=== PATIENT | female | born 2000 | race Two or more races ===

== ENCOUNTER 2018-09-03 16:10 | Emergency (ER) | payer OTHER ==
[2018-09-03] MEDS ORDERED: NS 1,000 ML IV ONE (16:51)
--- NOTE | 2018-09-03 16:56 | EDPHY ---
HPI/HX/ROS/PE/MDM Narrative: CHIEF COMPLAINT: Syncope HPI: The patient is a 17-year-old female with no significant past medical history. She has been in her usual state of health until this afternoon when she was sitting in class and developed abdominal pain and headache. She then felt faint and eventually passed out. She did not injure herself when she passed out. She continues to complain of mild headache and abdominal pain. She denies dysuria. She denies fever. She has no history of abdominal surgery. She has no history of heart disease that she knows of. She states that she did not eat anything for most of the day, and has recently started her menstrual period. REVIEW OF SYSTEMS: Aside from elements discussed in the HPI, a comprehensive 10-point review of systems was reviewed and is negative. PMH: None significant. Eye surgery as a child. SOCIAL HISTORY: Single. Student. PHYSICAL EXAM: General:Patient is alert, in no acute distress. ENT:Eyes are normal to inspection. ENT inspection normal. Neck: Normal inspection. Full range of motion. Respiratory:No respiratory distress. Breath sounds normal bilaterally. Cardiovascular: Regular rate and rhythm. Strong peripheral pulses. Normal cap refill. Abdomen:The abdomen is diffusely mildly tender to palpation. There are no peritoneal signs. There are normal bowel sounds. Back: Normal to inspection. No tenderness to palpation. Skin: Normal color. No rash. Warm and dry. Extremities: Normal appearance. Full range of motion. Neuro: Oriented x3. Normal motor function. Normal sensory function. ED Course: Patient tolerated PO. Challenge and road test without any difficulty. I was informed by the nurse that the patient refuses to give a urine sample because she just started her menstrual period. Her mother is here now and she would like to go home she has isolated T-wave inversions in V1 and V2 which I will refer her to Cardiology for. I see no signs of PE, acute coronary syndrome , life-threatening arrhythmia, sepsis. - Data Points Laboratory Results: Laboratory Results 09/03/18 16:16 09/03/18 16:16 09/03/18 09/03/18 09/03/18 16:16 16:16 16:16 WBC 9.47 10^3/uL 10^3/uL (3.80-9.50) RBC 5.05 10^6/uL 10^6/uL (4.18-5.33) Hgb 14.3 g/dL g/dL (12.6-16.3) Hct 41.7 % % (38.0-47.0) MCV 82.6 fL fL (81.5-99.8) MCH 28.3 pg pg (27.9-34.1) MCHC 34.3 g/dL g/dL (32.4-36.7) RDW 12.5 % % (11.5-15.2) Plt Count 286 10^3/uL 10^3/uL (150-400) MPV 9.8 fL fL (8.7-11.7) Neut % (Auto) 64.7 % % (39.3-74.2) Lymph % (Auto) 29.8 % % (15.0-45.0) [place] % (Auto) 4.8 % % (4.5-13.0) Eos % (Auto) 0.2 % L % (0.6-7.6) Baso % (Auto) 0.2 % L % (0.3-1.7) Nucleat RBC Rel Count 0.0 % % (0.0-0.2) Absolute Neuts (auto) 6.13 10^3/uL 10^3/uL (1.70-6.50) Absolute Lymphs (auto) 2.82 10^3/uL 10^3/uL (1.00-3.00) Absolute Monos (auto) 0.45 10^3/uL 10^3/uL (0.30-0.80) Absolute Eos (auto) 0.02 10^3/uL L 10^3/uL (0.03-0.40) Absolute Basos (auto) 0.02 10^3/uL 10^3/uL (0.02-0.10) Absolute Nucleated RBC 0.00 10^3/uL 10^3/uL (0-0.01) Immature Gran % 0.3 % % (0.0-1.1) Immature Gran # 0.03 10^3/uL 10^3/uL (0.00-0.10) Sodium 139 mEq/L mEq/L (135-145) Potassium 4.3 mEq/L mEq/L (3.3-5.0) Chloride 106 mEq/L mEq/L (97-110) Carbon Dioxide 22 mEq/l mEq/l (22-31) Anion Gap 11 mEq/L mEq/L (6-14) BUN 10 mg/dL mg/dL (7-23) Creatinine 0.6 mg/dL mg/dL (0.6-1.0) Estimated GFR > 60 Glucose 98 mg/dL mg/dL (70-100) Calcium 9.6 mg/dL mg/dL (8.5-10.4) Beta HCG, Qual NEGATIVE Medications Given: Discontinued Medications Sodium Chloride (Ns) 1,000 mls @ 0 mls/hr IV EDNOW ONE; Wide Open PRN Reason: Protocol Stop: 09/03/18 16:52 Last Admin: 09/03/18 16:59 Dose: 1,000 mls General Time Seen by Provider: 09/03/18 16:50 Initial Vital Signs: Initial Vital Signs Temperature (C) 36.9 C 09/03/18 16:15 Heart Rate 70 09/03/18 16:15 Respiratory Rate 16 09/03/18 16:15 Blood Pressure 130/66 H 09/03/18 16:15 O2 Sat (%) 97 09/03/18 16:15 O2 Delivery Mode Room Air Allergies/Adverse Reactions: No Known Allergies Allergy (Unverified 09/03/18 16:14) Home Medications: Medication Instructions Recorded NK [No Known Home Meds] 09/03/18 Departure - Departure Disposition: Home, Routine, Self-Care Clinical Impression: Syncope Condition: Good Instructions: Syncope (ED) Additional Instructions: Follow-up with your primary doctor within 72 hours. Return to the Emergency Department for passing out,fever, chest pain, shortness of breath, increasing pain or other worsening of condition. We recommend you follow-up with Cardiology within one week. Referrals: Patient,NotPresent [Unknown] - As per Instructions Yobani Willis MD [Medical Doctor] - As per Instructions
[2018-09-03 17:09] LABS: PLATELET COUNT 286 10^3/uL (150-400)
[2018-09-03 19:27] VITALS: BP 115/77
--- NOTE | 2018-09-03 21:27 | CPEKG ---
Test Reason : OPEN Blood Pressure : / mmHG Vent. Rate : 077 BPM Atrial Rate : 081 BPM P-R Int : 124 ms QRS Dur : 085 ms QT Int : 393 ms P-R-T Axes : 044 059 026 degrees QTc Int : 445 ms Sinus arrhythmia Confirmed by Chris Garza ([id number]) on 09/03/2018 9:27:10 PM Referred By: Confirmed By:Chris Garza
== END 2018-09-03 19:35 | disposition home or self-care (01) ==
DX: R55 Syncope and collapse (principal); E86.9 Volume depletion, unspecified

== ENCOUNTER 2019-01-04 20:42 | Emergency (ER) | payer OTHER ==
--- NOTE | 2019-01-04 21:57 | EDPHY ---
General - History Smoking Status: Never smoked Time Seen by Provider: 01/04/19 21:57 Narrative: PHYSICIAN DOCUMENTATION: The patient was evaluated and managed by the Physician Bell Tier. My co- signature indicates that I have reviewed this chart and I agree with the findings and plan of care as documented. I am the secondary supervising physician. (Anabel De León) CLINICAL IMPRESSION: Concussion, left upper arm pain ASSESSMENT/PLAN: Patient is a 18-year-old female who presents to the ED after a slip and fall complaining of head injury, headache, dizziness and left upper arm pain. Patient is well appearing and in no acute distress, complains of mild discomfort at site of impact left crown. Patient is afebrile and nontoxic- appearing, she is in no acute distress on arrival. Patient with positive Romberg and mild gait ataxia on initial examination, positive LOC for unknown period of time and posttraumatic vomiting. Proceeded with CT for further evaluation, this revealed no evidence of acute skull fracture or intracranial hemorrhage. Humerus x-ray with no acute bony abnormality. Workup today was very reassuring, history of physical examination is consistent with concussion and left upper arm pain likely a contusion. There were no findings to suggest skull fracture, intracranial hemorrhage, humerus fracture, shoulder dislocation, compartment syndrome or neurovascular compromise. The patient was given ibuprofen with improvement of her headache. She was observed for a period of time, and on repeat examination and prior to discharge the patient is well-appearing, her neurological exam is grossly normal with no focal deficit. She is able to ambulate independently and without difficulty with normal gait, reports headache and dizziness nearly gone. She was placed in a sling for comfort. The patient had no further concerns. The patient does not have a primary care provider, she is a student at the [employer]. She will either follow up at [facility] or with referral provided. Strict return precautions were discussed- they will return to the emergency department for altered mentation, lethargy, vomiting, seizure, abnormal movements or for any other concerning symptom. Patient verbalizes understanding and is in agreement with this plan. DIFFERENTIAL DX: Differential diagnosis including but not limited to and in no particular order skull fracture, intracranial hemorrhage, arm fracture, compartment syndrome CHIEF COMPLAINT: Head injury, dizzy, left upper arm pain HPI: Patient is a 18 year old female who presents to the ED complaining of head injury, mild headache, dizziness and left upper arm pain after sustaining slip and fall. Patient reports that she was walking to the bus stop when she accidentally slipped on a puddle of water. This caused her to fall subsequently landing on her left upper arm and striking her head on the ground. She reports a brief LOC, this was unwitnessed. She immediately experienced pain at the site of impact on her left crown as well as left upper arm pain. She has since developed mild headache, dizziness, nausea and one episode of vomiting. She denies any vision changes, difficulty walking or with balance, focal weakness, neck or back pain. She also denies any chest wall pain or abdominal pain. She denies any shoulder pain, elbow or wrist pain- pain is located mid humerus. Denies any swelling, bruising, numbness or tingling. She has pain with palpation and movement. Denies any other injury or complaint. PMH: Denies Pertinent Past Surgical History: Denies Family History: Noncontributory Social History: Denies smoking, alcohol or illicit drug use REVIEW OF SYSTEMS: All other systems negative Constitutional: No fever, no chills, appetite change. Eyes: No discharge, vision change ENT: No sore throat, congestion, ear pain. Cardiovascular: No chest pain, no palpitations. Respiratory: No cough, no shortness of breath. Gastrointestinal: No abdominal pain, no vomiting, diarrhea. Genitourinary: No hematuria, dysuria, flank pain, pelvic pain Musculoskeletal: Left arm pain. No back pain, joint swelling, joint pain, myalgias. Skin: No rashes, color change. Neurological: Headache, dizziness. PHYSICAL EXAM: General Appearance: Alert, oriented, appropriate, cooperative, NAD, well hydrated, non-toxic appearing, VSS, no hypoxia. HENT: Normocephalic, atraumatic. Bilateral external ears are normal. Bilateral tympanic membranes are normal with pearly trimble reflex. Nares are clear, mucosa is pink. Oropharynx is clear, uvula is midline. There is no tonsillar enlargement or exudate. The dentition is normal. Eyes: PERRLA, EOMI intact without evidence of entrapment. Conjunctiva pink, no pallor or injection Neck: Supple, nontender, no lymphadenopathy, no midline pain, FROM. Respiratory: There are no retractions, lungs are clear to auscultation. No chest wall tenderness. Cardiac: Regular rate and rhythm, no murmurs or gallops. Gastrointestinal: Abdomen is soft, nontender, bowel sounds normal, no masses/ hernia, no rigidity, guarding or focal peritoneal findings. Neurological: MENTAL STATUS: Patient is alert and oriented to person, place, time, and situation. Recent and remote memory are intact. Attention and concentration are normal. Found knowledge is appropriate to level of education. Mood and affect normal. SPEECH: Language including naming, repetition, comprehension, and spontaneous speech are normal. No dysarthria or dysphagia. CRANIAL NERVES: II: Visual williamson are full to confrontation. Vision is grossly intact. III, IV, : Pupils are equal, round, reactive to light. Extraocular eye movements are full and without nystagmus. V: Facial sensation is intact to touch symmetrically in all 3 divisions. VII: Face is symmetric at rest with no asymmetry of grimace or evidence of facial weakness. VIII: Hearing is intact bilaterally to finger rub. IX, X: Palate is midline and elevates symmetrically with intact cough/gag. XI: Sternocleidomastoid and trapezius strength is normal. XII: Tongue protrudes midline without atrophy or fasciculations. MOTOR: Normal bulk and tone symmetrically in the upper and lower extremities. Upper extremities: shoulder abduction, elbow flexion, elbow extension, flexion of fingers and finger abduction strength 5/5 bilaterally. Lower extremities: hip flexion, knee flexion and extension, plantar and dorsiflexion of foot, and great toe extension strength 5/5 bilaterally. No pronator drift. SENSORY: Sensation is intact to light touch and symmetric in the UE's in LE's bilaterally. Romberg is positive. COORDINATION: Fine motor and rapid alternating movements are normal. Finger to nose is normal bilaterally. [id number] is normal bilaterally. No abnormal movements noted. There is no tremor at rest or with posture or action. GAIT/STATION: Casual, straightforward gait is normal. Patient can walk on toes and on heels. Mild gait instability on initial examination. Skin: Warm, dry, no rashes, no nodules on palpation. Musculoskeletal: Extremities are symmetrical, full range of motion, deformity, swelling, or erythema. Left shoulder is nontender with full range of motion. Left upper arm with tenderness in the mid humerus, no ecchymosis or edema. Compartment soft, elbow/forearm/wrist nontender with full ROM. The radial, ulnar and median nerves were all tested. Radial nerve: Patient is able to extend wrist and fingers of the local joints. Ulnar nerve: Patient is able to abduct all fingers. Median nerve patient is able to oppose thumb to pinky. Elbow is nontender with full range of motion. Psychiatric: Patient is oriented X 3, there is no agitation. MEDICAL DECISION MAKING: Patient was seen independently. Secondary supervising physician at time of evaluation was Dr. De León, she did not evaluate this patient. Diagnosis: Concussion, left upper arm pain. New, requires workup Summary: See Assessment and Plan for summary of ED visit Clinical lab tests: Not applicable. Independent visualization of images, tracing, or specimens: Yes. Decision to obtain medical records or history from someone other than the patient: No Review / Summarize previous medical records: None available Discussed patient with another provider: Yes, Dr. De León Patient Progress: Stable, discharged. (Teodora Smith) - Objective Vital Signs: Initial Vital Signs Temperature (C) 37.0 C 01/04/19 21:00 Heart Rate 75 01/04/19 21:00 Respiratory Rate 18 01/04/19 21:00 Blood Pressure 116/79 01/04/19 21:00 O2 Sat (%) 96 01/04/19 21:00 O2 Delivery Mode Room Air Allergies/Adverse Reactions: No Known Allergies Allergy (Unverified 09/03/18 16:14) Home Medications: Medication Instructions Recorded NK [No Known Home Meds] 09/03/18 Medications Given: Discontinued Medications Ibuprofen (Motrin) 400 mg PO EDNOW ONE Stop: 01/04/19 23:09 Last Admin: 01/04/19 23:15 Dose: 400 mg Ondansetron HCl (Zofran Odt) 4 mg PO EDNOW ONE Stop: 01/04/19 23:09 Last Admin: 01/04/19 23:15 Dose: 4 mg Departure - Departure Disposition: Home, Routine, Self-Care Clinical Impression: Concussion Qualifiers: Encounter type: initial encounter Loss of consciousness presence/duration: with LOC of 30 min or less Qualified Code(s): S06.0X1A - Concussion with loss of consciousness of 30 minutes or less, initial encounter Arm pain Qualifiers: Laterality: left Qualified Code(s): M79.602 - Pain in left arm Condition: Good Instructions: Concussion (ED) Additional Instructions: DISCHARGE INSTRUCTIONS FROM YOUR DOCTOR Thank you for visiting our emergency department today. Please keep in mind that discharge from the emergency department does not mean that there is nothing wrong - it simply means that we have not identified an emergency condition that requires further evaluation or treatment in the hospital. You should always plan to follow up with primary care for re-evaluation of your condition in the next 2-3 days. Wear your sling for comfort, ice for the next several days. Your x-ray was negative for acute bony abnormality. Brain rest: No phone, texting, t.v., music. Stop smoking as soon as possible. Avoid activities where the you could fall or reinjure your head. No contact sports until the pain, swelling and all symptoms have completely resolved and a primary care physician has cleared you. As discussed, head injuries can be cummulative. Your head needs a rest. Elevate the head of the bed to decrease pain and/or swelling. For pain control: You may take Tylenol, I recommend 500-1000 mg every 6-8 hours as needed. Take with food and a full glass of water. Stop taking if this is upsetting her stomach. Do not exceed 4000 mg in a 24 hr period. You may also take ibuprofen, recommend 400 mg every 6 hr. Take with food and a full glass of water. Stop taking if this upsets her stomach. Do not exceed 2400 mg in a 24 hr period. You should spend the next 24 hours with a residential real estate agent who knows you well and can help monitor your symptoms. Return immediately for severe headache, unusual fatigue, difficulty being aroused, vomiting, dizziness, fainting, mental status changes, personality changes, tremor/seizure, visual disturbance, unusual movements, numbness, tingling, weakness or other concerns. Schedule a follow-up appointment with a primary care physician in 1-2 days re- evaluation. Use the list of resources if you need primary care contact information. Return for any of the above mentioned symptoms, for fever, chills, development of bruising or swelling, new site of pain, blurry vision, double vision, eye sensitivity to light, eye pain, visual disturbance, neck pain or stiffness, back pain, arm or leg pain, arm or leg numbness, tingling, weakness, for other signs of injury, change in or loss of bowel or bladder control, or for any other new, worsening or worrisome symptoms. People present with illnesses and injuries in different ways, and it is always possible that we have missed something. You may always return for re-evaluation if symptoms worsen or if they are not improving or if you develop new/different symptoms. Again, thank you for choosing our emergency department. We hope that you feel better. Referrals: Josh Jordan MD [Medical Doctor] - 2-3 days, call for appt. (It is important that you establish care with a primary care provider.)
[2019-01-04] MEDS ORDERED: ONDANSETRON DISINTEGRATING 4 MG TAB PO ONE (23:08)
[2019-01-04] MEDS ORDERED: IBUPROFEN 200 MG TAB PO ONE (23:08)
[2019-01-05 00:48] VITALS: BP 117/73
== END 2019-01-05 00:48 | disposition home or self-care (01) ==
DX: S06.0X0A Concussion without loss of consciousness, initial encounter (principal); M79.602 Pain in left arm; W01.198A Fall on same level from slipping, tripping and stumbling with subsequent striking against other object, initial encounter; Y92.89 Other specified places as the place of occurrence of the external cause; Y99.9 Unspecified external cause status; Y93.01 Activity, walking, marching and hiking
CPT/HCPCS: A4565